=== PATIENT | male | born 1980 | race Caucasian/White ===

== ENCOUNTER 2024-05-31 03:16 | Inpatient (IN) | payer OTHER, SELFPAY ==
[2024-05-30 20:58] VITALS: BMI 20.7
[2024-05-30 21:30] VITALS: BP 151/101
[2024-05-30 22:17] LABS: % Basophils 0.3 % (0-2); % Immature Granulocytes 0.3 % (0-0.5); % Lymphocytes 10.1 % (20.5-51.1); % Monocytes 1.8 % (1.7-9.3); % Neutrophils 87.5 % (42.2-75.2); Absolute Monocytes 0.2 10^3/uL (0.1-0.6); Absolute Neutrophils 8.7 10^3/uL (1.4-6.5); Hematocrit 36.1 % (39.0-52.0); Hemoglobin 12.9 g/dL (13.0-18.0); Mean Corp Hgb Conc. 35.7 g/dL (33.0-37.0); Mean Corpuscular Hgb 29.6 pg (27.0-31.0); Mean Corpuscular Volume 82.8 fL (80.0-94.0); Mean Platelet Volume 9.5 fL (7.4-10.4); Nucleated Red Blood Cells % 0 % (-); Platelet Count 219 10^3/uL (130-400); Red Blood Cell Count 4.36 10^6/uL (4.70-6.10); Red Cell Dist. Width 12.3 % (11.5-14.5)
[2024-05-30] MEDS: NSS 500 IV ×2 (22:18→23:02)
[2024-05-30] MEDS: ZOFRAN 4 MG IV (22:18)
[2024-05-30] MEDS: OMNIPAQUE 50 ML PO (22:18)
[2024-05-30 22:25] VITALS: BP 161/78
[2024-05-30 22:29] LABS: Lactic Acid 2.5 mmol/L (0.7-2.0)
[2024-05-30 22:44] LABS: ALT (SGPT) 26 U/L (0-50); AST (SGOT) 26 U/L (17-59); Albumin 4.8 g/dl (3.5-5.0); Alkaline Phosphatase 81 U/L (38-126); Blood Urea Nitrogen 16 mg/dl (9-20); Carbon Dioxide 23 mmol/L (22-30); Chloride 100 mmol/L (98-107); Estimated Creatinine Clearance 88 ml/min; Glucose 139 mg/dl (70-99); Lipase 50 U/L (23-300); Potassium 4.2 mmol/L (3.5-5.1); Sodium 138 mmol/L (135-145); Total Bilirubin 0.5 mg/dl (0.2-1.3); Total Protein 7.4 g/dl (6.3-8.2); eGFR > 60.00
[2024-05-30] MEDS: COMPAZINE 10 MG IV (22:49)
--- NOTE | 2024-05-30 22:50 | ED.GENMED ---
History of Present Illness
<Jaqueline Oviedo PA-C - Last Filed: 05/31/24 13:00>
General
Chief Complaint: Abdominal Pain
Source: patient
Time Seen by Provider: 05/30/24 21:04
History of Present Illness
History of Present Illness:
43yoM with a history of prior IVDU (last used on 05/10/24, currently on methadone) presenting from the local skilled nursing for evaluation of abdominal pain. He entered the skilled nursing about a week ago. He started to experience pain in his abdomen this morning.
Pain was gradual in onset and is now severe. Pain is primarily located in the epigastrium. He is also having nausea and has had about 4 episodes of vomiting throughout the day. He denies any hematemesis. He has a history of similar symptoms in the
past requiring hospitalization. He was evaluated by the medical staff at the skilled nursing and bowel sounds were reportedly hypoactive. There was concern about a possible bowel obstruction and he was sent to the ED for evaluation. He had a normal bowel
movement earlier today. He denies any fevers or dysuria. No previous abdominal surgeries.
Past History
<Rui Palafox DO - Last Filed: 05/31/24 02:23>
Past History
ED Past Medical History: Other (Questionable peptic ulcer disease, narcotic addiction on methadone)
Social History
Drug: IVDA
Living: skilled nursing
Review of Systems
<Rui Palafox DO - Last Filed: 05/31/24 02:23>
Review of Systems
Constitutional: Reports no symptoms
EENT: Reports no symptoms
Respiratory: Reports no symptoms
Cardiac: Reports no symptoms
ABD/GI: Reports abdominal pain, nausea, vomiting and anorexia; Denies diarrhea, constipated, bloody stools or black stools
: Reports no symptoms
Musculoskeletal: Reports no symptoms
Skin: Reports no symptoms
Neurological: Reports no symptoms
Hematologic/Lymphatic: Reports no symptoms
Phy Exam
<Jaqueline Oviedo PA-C - Last Filed: 05/31/24 13:00>
Physical Exam
Physical Exam:
Appears uncomfortable, clutching abdomen
General Physical Exam
General Presentation: moderate distress
General Skin: warm, dry and pale
General Habitus: frail
General Mental: alert
ENT Exam
ENT Exam: normocephalic
Cardiovascular Exam
Cardiovascular Exam: regular rate/rhythm and no murmur
Pulmonary Exam
Pulmonary Exam: lungs clear, no respiratory distress, no crackles and no wheezing
Gastrointestinal Exam
Gastrointestinal Exam: soft, non distended and other (+Generalized tenderness throughout abdomen, seems to be worse in the LUQ/epigastrium. Abdomen non-distended. No rebound tenderness. )
[place] Coma Scale
Eye Opening: Spontaneous
Verbal Response: Oriented
Motor Response: Obeys Commands
GCS Total Score: 15
Skin Exam
Skin Exam: warm/dry and pallor
Psychiatric Exam
Psychiatric Exam: normal mood/affect
<Rui Palafox DO - Last Filed: 05/31/24 02:23>
[place] Coma Scale
GCS Total Score: 15
Scores
<Rui Palafox DO - Last Filed: 05/31/24 02:23>
Heart Failure Risk
Heart Failure Risk Score: Not Applicable
Heart Score for Chest Pain Patients
STEMI patient?: Not applicable
Withdrawal Assessment of Alcohol
Withdrawal Assessment Completed?: Not applicable
Course
<Jaqueline Oviedo PA-C - Last Filed: 05/31/24 13:00>
Orders/Labs/Results
Orders:
Orders
05/30/24 21:12
0.9% Sodium Chloride 500 ml [Nss] 500 ml IV BOLUS
Iohexol [Omnipaque] See Protocol PO NOW STA
Ondansetron Injectable [Zofran] 4 mg IV NOW STA
05/30/24 21:51
Complete Blood Count/With Diff Urgent
Comprehensive Metabolic Panel Urgent
Lipase Urgent
05/30/24 22:10
Lactic Acid Urgent
05/30/24 22:32
0.9% Sodium Chloride 500 ml [Nss] 500 ml IV BOLUS
05/30/24 22:40
Acetaminophen 1000MG/100Ml [Ofirmev] 1,000 mg in 100 ml IV ONCE
Acetaminophen IV Indication:: ED Narcotic History-ONCE
Diphenhydramine [Benadryl] 25 mg IV NOW STA
Pantoprazole [Protonix IV] 80 mg IV NOW STA
Prochlorperazine [Compazine] 10 mg IV NOW STA
05/30/24 22:45
Pantoprazole 80 mg/100 ml Nss [Protonix] 80 mg in 100 ml IV Q10H
05/31/24 00:00
CT Abd/pel W Iv And Oral Contr Urgent
Reason For Exam: Upper abd pain, vomiting
05/31/24 01:25
Butorphanol Tartrate [Stadol] 2 mg IV NOW STA
05/31/24 02:32
Lidocaine 2% Mpf [Xylocaine Mpf 2%] 85 mg Pharmacy To Prepare [Call Pharmacy To Prepare] 0 ml IV NOW
05/31/24 02:40
Lidocaine 2% Mpf [Xylocaine Mpf 2%] 85 mg 0.9% Sodium Chloride 100 ml [Nss] 100 ml IV NOW
05/31/24 03:05
Admit/Transfer Patient As Directed
Co-Sign Provider:
Level of Care: Inpatient admission
Assign to:: Telemetry
Physician / Group: Vishal
Diagnosis: Abd Pain
Reason for Telemetry: Arrhythmia
Date to Stop Telemetry: 06/03/24
Time to Stop Telemetry: 11:00
Reason for Hospitalization: Abd Pain
Expected length of stay greater than two midnights?: Yes
ELOS- Estimated Length of Stay in days: 2
I certify the patient meets the requirements for IP care: Yes
05/31/24 03:06
PRN Pain Medication Management As Directed
May give lesser potent ordered pain med per pt: Yes
preference::
Protocol:: Medication orders for pain may be administered in a
manner that supports deferring to patient preference
when the pt is:
- Requesting an ordered lesser potent pain medication.
Least to most potent pain medications are defined
as: acetaminophen < NSAID < tramadol < opioids
(morphine, oxycodone, hydromorphone).
- Requesting a lesser dose of the same medication IF
ORDERED.
- Requesting a less intrusive route of administration
if both routes are prescribed by the provider (PO <
IV).
05/31/24 03:07
Code Status As Directed
Resuscitation Status: Full Code
05/31/24 04:47
Acetaminophen [Tylenol] 650 mg PO Q4HPRN PRN
Ketorolac [Toradol] 15 mg IV Q6HPRN PRN
Lactated Ringers [Lr] 1,000 ml IV 125 mls/hr
Metoclopramide [Reglan] 10 mg IV Q6HPRN PRN
Ondansetron Injectable [Zofran] 4 mg IV Q6HPRN PRN
Polyethylene Glycol Powder [Miralax] 17 grams PO DAILY PRN
05/31/24 04:47
Consult Notification Routine
Specialty to Notify: Gastroenterology
GASTROINTESTINAL CONSULT Routine
Consulting Provider: Gavin Barron
Was physician already notified: No
Reason for consult: Abd Pain
Activity As Directed
Activity Level: Ambulate
With Assistance
EKG with chest pain [ECG as needed] As Directed
ECG as needed for:: Chest Pain
I/O [Intake/ Output] As Directed
Frequency: Per unit guidelines
Orthostatic Vital Signs As Directed
Orthostatic VS Frequency: BID
Pneumatic Compression Sleeves As Directed
Type: Knee high
Vital Signs As Directed
Frequency: Per unit guidelines
Oxygen Therapy [O2 Therapy] [RESP] Routine
Titrate/Wean O2 to maintain O2 sat greater than (%): 94
DX Deep Vein Thrombosis Video Routine
05/31/24 05:08
Basic Metabolic Panel IN AM
Complete Blood Count/No Diff IN AM
05/31/24 08:00
Docusate Sodium [Colace] 100 mg PO BID
Methadone HCl [Methadone 100 mg/10 ml] 70 mg PO DAILY
Sertraline HCl [Zoloft] 50 mg PO DAILY
05/31/24 22:00
Sennosides [Senokot] 17.2 mg PO HS
06/03/24 11:00
DC Protocol for Telemetry ONCE
Abnormal Lab Results
05/30/24 05/30/24
21:51 22:10
RBC 4.36 L 10^6/uL
(4.70-6.10)
Hgb 12.9 L g/dL
(13.0-18.0)
Hct 36.1 L %
(39.0-52.0)
Absolute Neuts (auto) 8.7 H 10^3/uL
(1.4-6.5)
Absolute Lymphs (auto) 1.0 L 10^3/uL
(1.2-3.4)
Neutrophils % 87.5 H %
(42.2-75.2)
Lymphocytes % 10.1 L %
(20.5-51.1)
Glucose 139 H mg/dl
(70-99)
Lactic Acid 2.5 H mmol/L
(0.7-2.0)
05/30/24 21:51
05/30/24 21:51
Vital Signs
Initial and Last Documented VS:
Initial Vital Signs
Pulse Ox
100
05/30/24 21:16
Last Documented Vital Signs
Temp Pulse Resp BP Pulse Ox
98.0 F 79 18 120/86 100
05/31/24 11:37 05/31/24 11:37 05/31/24 11:37 05/31/24 11:37 05/31/24 11:37
<Rui Palafox DO - Last Filed: 05/31/24 02:23>
Orders/Labs/Results
Orders:
Orders
05/30/24 21:12
0.9% Sodium Chloride 500 ml [Nss] 500 ml IV BOLUS
Iohexol [Omnipaque] See Protocol PO NOW STA
Ondansetron Injectable [Zofran] 4 mg IV NOW STA
05/30/24 21:51
Complete Blood Count/With Diff Urgent
Comprehensive Metabolic Panel Urgent
Lipase Urgent
05/30/24 22:10
Lactic Acid Urgent
05/30/24 22:32
0.9% Sodium Chloride 500 ml [Nss] 500 ml IV BOLUS
05/30/24 22:40
Acetaminophen 1000MG/100Ml [Ofirmev] 1,000 mg in 100 ml IV ONCE
Acetaminophen IV Indication:: ED Narcotic History-ONCE
Diphenhydramine [Benadryl] 25 mg IV NOW STA
Pantoprazole [Protonix IV] 80 mg IV NOW STA
Prochlorperazine [Compazine] 10 mg IV NOW STA
05/30/24 22:45
Pantoprazole 80 mg/100 ml Nss [Protonix] 80 mg in 100 ml IV Q10H
05/31/24 00:00
CT Abd/pel W Iv And Oral Contr Urgent
Reason For Exam: Upper abd pain, vomiting
05/31/24 01:25
Butorphanol Tartrate [Stadol] 2 mg IV NOW STA
05/31/24 02:32
Lidocaine 2% Mpf [Xylocaine Mpf 2%] 85 mg Pharmacy To Prepare [Call Pharmacy To Prepare] 0 ml IV NOW
05/31/24 02:40
Lidocaine 2% Mpf [Xylocaine Mpf 2%] 85 mg 0.9% Sodium Chloride 100 ml [Nss] 100 ml IV NOW
05/31/24 03:05
Admit/Transfer Patient As Directed
Co-Sign Provider:
Level of Care: Inpatient admission
Assign to:: Telemetry
Physician / Group: Vishal
Diagnosis: Abd Pain
Reason for Telemetry: Arrhythmia
Date to Stop Telemetry: 06/03/24
Time to Stop Telemetry: 11:00
Reason for Hospitalization: Abd Pain
Expected length of stay greater than two midnights?: Yes
ELOS- Estimated Length of Stay in days: 2
I certify the patient meets the requirements for IP care: Yes
05/31/24 03:06
PRN Pain Medication Management As Directed
May give lesser potent ordered pain med per pt: Yes
preference::
Protocol:: Medication orders for pain may be administered in a
manner that supports deferring to patient preference
when the pt is:
- Requesting an ordered lesser potent pain medication.
Least to most potent pain medications are defined
as: acetaminophen < NSAID < tramadol < opioids
(morphine, oxycodone, hydromorphone).
- Requesting a lesser dose of the same medication IF
ORDERED.
- Requesting a less intrusive route of administration
if both routes are prescribed by the provider (PO <
IV).
05/31/24 03:07
Code Status As Directed
Resuscitation Status: Full Code
05/31/24 04:47
Acetaminophen [Tylenol] 650 mg PO Q4HPRN PRN
Ketorolac [Toradol] 15 mg IV Q6HPRN PRN
Lactated Ringers [Lr] 1,000 ml IV 125 mls/hr
Metoclopramide [Reglan] 10 mg IV Q6HPRN PRN
Ondansetron Injectable [Zofran] 4 mg IV Q6HPRN PRN
Polyethylene Glycol Powder [Miralax] 17 grams PO DAILY PRN
05/31/24 04:47
Consult Notification Routine
Specialty to Notify: Gastroenterology
GASTROINTESTINAL CONSULT Routine
Consulting Provider: Gavin Barron
Was physician already notified: No
Reason for consult: Abd Pain
Activity As Directed
Activity Level: Ambulate
With Assistance
EKG with chest pain [ECG as needed] As Directed
ECG as needed for:: Chest Pain
I/O [Intake/ Output] As Directed
Frequency: Per unit guidelines
Orthostatic Vital Signs As Directed
Orthostatic VS Frequency: BID
Pneumatic Compression Sleeves As Directed
Type: Knee high
Vital Signs As Directed
Frequency: Per unit guidelines
Oxygen Therapy [O2 Therapy] [RESP] Routine
Titrate/Wean O2 to maintain O2 sat greater than (%): 94
DX Deep Vein Thrombosis Video Routine
05/31/24 05:08
Basic Metabolic Panel IN AM
Complete Blood Count/No Diff IN AM
05/31/24 08:00
Docusate Sodium [Colace] 100 mg PO BID
Methadone HCl [Methadone 100 mg/10 ml] 70 mg PO DAILY
Sertraline HCl [Zoloft] 50 mg PO DAILY
05/31/24 22:00
Sennosides [Senokot] 17.2 mg PO HS
06/03/24 11:00
DC Protocol for Telemetry ONCE
Abnormal Lab Results
05/30/24 05/30/24
21:51 22:10
RBC 4.36 L 10^6/uL
(4.70-6.10)
Hgb 12.9 L g/dL
(13.0-18.0)
Hct 36.1 L %
(39.0-52.0)
Absolute Neuts (auto) 8.7 H 10^3/uL
(1.4-6.5)
Absolute Lymphs (auto) 1.0 L 10^3/uL
(1.2-3.4)
Neutrophils % 87.5 H %
(42.2-75.2)
Lymphocytes % 10.1 L %
(20.5-51.1)
Glucose 139 H mg/dl
(70-99)
Lactic Acid 2.5 H mmol/L
(0.7-2.0)
05/30/24 21:51
05/30/24 21:51
Vital Signs
Initial and Last Documented VS:
Initial Vital Signs
Pulse Ox
100
05/30/24 21:16
Last Documented Vital Signs
Temp Pulse Resp BP Pulse Ox
98.0 F 79 18 120/86 100
05/31/24 11:37 05/31/24 11:37 05/31/24 11:37 05/31/24 11:37 05/31/24 11:37
<Jaqueline Oviedo PA-C - Last Filed: 05/31/24 13:00>
MDM/Problems Addressed
Differential Diagnosis Includes:
43yoM here with abdominal pain and n/v that began earlier today. Hx of IVDU currently on methadone. Arrives from local skilled nursing. Medical staff at skilled nursing reportedly concerned for bowel obstruction although patient had a normal BM earlier today. VSS. He
appears uncomfortable on exam. Abdomen is non-distended with generalized tenderness. Differential diagnosis includes but is not limited to: pancreatitis, PUD, gastroenteritis, colitis, SBO, early appendicitis
Initial ED plan: Check abdominal labs, lactate, and CT abdomen. IV Zofran and fluid bolus for symptoms.
<Rui Palafox DO - Last Filed: 05/31/24 02:23>
*Radiology
Radiology exam reviewed: radiology read reviewed (Large amount of stool but nothing acute on the CT)
*Pulse Oximetry
Patient hypoxic: no
*EKG
Interpreted by ED Provider?: NA
*Marketing Program Manager Interpretation
Rate: Marketing Program Manager- N/A
*Critical Care Note
Total Time (30-74mins, 75-104mins- exclusive of procedures): Not Applicable
<Jaqueline Oviedo PA-C - Last Filed: 05/31/24 13:00>
Update Note
Update Note:
Lactate 2.5. White count is normal. Remainder of labs unremarkable including normal lipase, LFTs, renal function. Suspect lactic acidosis is 2/2 vomiting and dehydration. Additional fluid bolus ordered. No symptomatic improvement after Zofran and IV
Compazine, Benadryl, Ofirmev, and Protonix ordered. Patient signed out to Dr. Palafox pending CT results. Final disposition pending.
I checked with pharmacy and state all could precipitate withdrawal. Patient's received IV acetaminophen. Will try IV lidocaine. I am trying to avoid narcotics or ketamine.
<Rui Palafox DO - Last Filed: 05/31/24 02:23>
Update Note
Update Note:
Lactate 2.5. White count is normal. Remainder of labs unremarkable including normal lipase, LFTs, renal function. Suspect lactic acidosis is 2/2 vomiting and dehydration. Additional fluid bolus ordered. No symptomatic improvement after Zofran and IV
Compazine, Benadryl, Ofirmev, and Protonix ordered.
I checked with pharmacy and state all could precipitate withdrawal. Patient's received IV acetaminophen. Will try IV lidocaine. I am trying to avoid narcotics or ketamine.
ED Attending Note
<Jaqueline Oviedo PA-C - Last Filed: 05/31/24 13:00>
-
Portions of this chart may have been created with voice recognition software.� Occasional wrong word or��sound alike� substitutions may have occurred due to the inherent limitations of voice recognition software.
<Rui Palafox DO - Last Filed: 05/31/24 02:23>
ED Attending Note
Patient seen and examined by attending physician: Yes
I performed the substantive portion of visit, reviewed & personally made and approve the management plan that is documented in note by myself or PRIYANK.: Yes
ED Attending Note:
Patient is a 43-year-old male who presents with abdominal pain and nausea and vomiting since this morning. Patient states he has had this previously and typically his white count is elevated with intractable vomiting and pain he needs admitted to
the hospital. Patient has been in the skilled nursing since 23 May. Patient has not had any alcohol. Patient denies any fever or chills. Patient denies any melena or hematochezia. Patient denies any diarrhea or constipation. Patient denies any
chest pain or shortness of breath. Patient is on methadone has a history of IVDA. On physical exam the patient appears older than stated age and appears to be in significant distress. Patient somewhat pale. Patient has poor dentition. Patient's
neck is supple. Heart is regular lungs are clear. Patient's abdominal exam is diffusely tender without apparent guarding or rebound. Patient's extremities without edema, cyanosis. Patient has poor vascular access. Patient's lactate is
elevated.. Do not believe this is due to sepsis and doubt ischemic bowel disease although certainly that has to be in the differential. Believe it is due more to dehydration and volume contraction. Get the CT scanned. I anticipate the patient
will need to be admitted. Patient's vomitus is brown but there small amounts of blood. When asked about his previous history the patient did mention possible ulcers. Patiently placed on Protonix. Will try to manage the patient's pain without
narcotics but may need rescue medication.
01:30 patient's CAT scan is rather unremarkable. Patient does have a large amount of stool. Does not appear to be extensive atherosclerosis or anything to explain ischemic bowel disease. Given the patient's history and presentation and continued
symptoms the patient will be admitted.
Discharge Plan
Departure
Patient Disposition: Admit
Date of Disposition: 05/31/24
Time of Disposition: 01:33
Admit to: Med/Surg
Admit to doctor: Hospitalist
Presentation/result/management discussed w/ accepting MD/DO: Hospitalist
Patient with high blood pressure during this ER visit?: Yes
Condition: Fair
Covid-19: Not Applicable
Discharge Problem:
Abdominal pain, Vomiting
Interventions
Interventions:
*Risk Screen - Suicide Last Done: 05/30/24 21:30
*General Assessment Last Done: 05/30/24 21:30
*Neglect/Abuse Screening Last Done: 05/30/24 21:30
*ED COVID-19 Vaccine History Last Done: 05/30/24 21:35
*Nursing Disposition Last Done: 05/31/24 04:55
DB-Bhimfg-Pagvhlgtwj Assessment Last Done: 05/30/24 21:36
Discharge Date and Time
Discharge Date/Time: 05/31/24 04:55
[2024-05-30] MEDS: BENADRYL 25 MG IV (22:51)
[2024-05-30] MEDS: PROTONIX IV 80 MG IV (22:57)
[2024-05-30 23:00] VITALS: BP 147/76
[2024-05-30] MEDS: OFIRMEV 100 IV (23:03)
[2024-05-30] MEDS: PROTONIX 100 IV (23:35)
[2024-05-31] VITALS (12 sets, daily range): BP systolic 119–154; BP diastolic 74–111; PULSE 67–105; BMI 19.2
[2024-05-31] MEDS: XYLOCAINE MPF 2% 104.25 MG IV (02:54)
--- NOTE | 2024-05-31 03:11 | HPS.HSE ---
Family Physician
-
Family Physician: [facility]
Chief Complaint
-
Abd Pain
History of Present Illness
Patient is a 43y M with PMH significant for opioid use disorder who presents to ED complaining of abdominal pain. Patient states that he woke this AM with abdominal pain that has gradually progressed throughout the day. He was seen by the nurse
at skilled nursing this AM and given Zofran without improvement in his symptoms. He then developed N/V x several episodes of non-bloody emesis. He was brought to the ED for further evaluation and treatment. Patient states that the pain is along the center
of his abdomen - from his umbilicus to his epigastric region. He had a single episode of emesis here in the ED with some blood tinge.
Patient reports prior history of similar symptoms and notes that he has been seen in hospitals in the past for similar symptoms. He states that he was diagnosed with 'ulcers'.
He notes that it has been some time since he had such an episode.
Patient has history of opioid use disorder. He uses fentanyl IV or intranasally.
He last used on 05/09 - prior to being incarcerated on 05/10.
He has been on methadone since that time. His dose was increased about 2 weeks ago.
Medical History
Past Medical History
Past Medical History: Reports Other
Additional Past Medical History:
Opioid Use Disorder
Anxiety / Depression
GERD / PUD
Past Surgical History: Reports Other
Additional Past Surgical History:
Bilateral Inguinal Hernia Repairs
Social History
Tobacco: Smoker (Current every day smoker. 07/28 ppd.)
Alcohol: None
Drug: Other (Fentanyl use IV and intranasal. Last used 05/09/24.)
Family History
Family History: Not pertinent
Allergies / Home Medications
Allergies reflects when Allergies were last updated in [facility].
Home Medications with original date entered in [facility]
Allergy/Medication List:
Allergies
Allergy/AdvReac Type Severity Reaction Status Date / Time
No Known Allergies Allergy Unverified 05/30/24 21:28
Home Medications
hydroxyzine pamoate 50 mg capsule 50 mg PO BID 05/30/24
methadone 10 mg/mL oral concentrate 70 mg PO DAILY 05/30/24
ondansetron HCl 4 mg tablet 4 mg PO BID 05/30/24
sertraline 50 mg tablet 50 mg PO DAILY 05/30/24
Review of Systems
-
History Source: Patient
A 12 point ROS was completed and negative except as noted: Yes
Constitutional: Denies Fever or Chills
EENT: Denies Sore Throat
Respiratory: Denies Cough or Trouble Breathing
Cardiac: Denies Chest Pain or Palpitations
Abdomen/GI: Reports Abdominal Pain, Nausea and Vomiting; Denies Diarrhea, Constipated, Bloody Stools, Black Stools or Anorexia
: Denies Dysuria, Frequency or Flank Pain
Neurological: Denies Dizzy or Headache
Psych: Reports Anxiety; Denies Depression
Physical Exam
Vital Signs
Vital Signs
Temp Pulse Resp BP Pulse Ox
98.4 F 84 20 154/96 98
05/30/24 21:30 05/31/24 03:00 05/31/24 02:45 05/31/24 03:00 05/31/24 03:00
Physical Exam
General: Other (43y M in mild distress due to abdominal pain and anxiety.)
HEENT: Moist mucous membranes, PERRLA and Other (Poor dentition.)
Respiratory: Clear; No Wheezes, Rales or Rhonchi
Cardiac: S1/S2 and Regular Rhythm; No Murmur
GI: Soft, Non Distended, Normal Bowel Sounds and Other (Tenderness in mid-abdomen. Voluntary guarding.)
Musculoskeletal: No Clubbing, No Cyanosis and No Edema
Neuro: AO x 3
Laboratory Results
-
05/30/24 21:51
05/30/24 21:51
Laboratory Results
Lactic Acid 2.5 mmol/L (0.7-2.0) H 05/30/24 22:10
Total Bilirubin 0.5 mg/dl (0.2-1.3) 05/30/24 21:51
AST 26 U/L (17-59) 05/30/24 21:51
ALT 26 U/L (0-50) 05/30/24 21:51
Alkaline Phosphatase 81 U/L (38-126) 05/30/24 21:51
Lipase 50 U/L (23-300) 05/30/24 21:51
Impression/Plan
-
A/P: Patient is a 43y M with PMH significant for substance abuse who presents to ED from skilled nursing complaining of abdominal pain.
Abdominal Pain
- Admit for further evaluation and treatment.
- Unclear etiology of pain.
- CT done in the ED is unremarkable.
- ? gastritis, PUD, cyclic vomiting syndrome (based on history of prior episodes), etc.
- Continue efforts at supportive care - attempting to avoid additional opioid medications.
- IV PPI gtt started in the ED.
- Pain control with Tylenol, Reglan / Toradol, etc.
- GI evaluation for additional recommendations.
- Follow for any new / worsening symptoms.
Opioid Use Disorder
- Last use of illicit substances was 05/09 prior to incarceration.
- Currently on methadone and will continue current dose without changes.
- Attempt to avoid opioid medications for acute pain - especially with no clear etiology discovered.
DVT Prophylaxis: SCDs
Code Status: Full
--- NOTE | 2024-05-31 04:47 | PTCARENOTE ---
Pt received from ED to rm [id number]. Pt oriented to room and call alonso.
[2024-05-31 05:23] LABS: Hematocrit 36.2 % (39.0-52.0); Hemoglobin 12.7 g/dL (13.0-18.0); Mean Corp Hgb Conc. 35.1 g/dL (33.0-37.0); Mean Corpuscular Hgb 30.6 pg (27.0-31.0); Mean Corpuscular Volume 87.2 fL (80.0-94.0); Mean Platelet Volume 9.9 fL (7.4-10.4); Platelet Count 217 10^3/uL (130-400); Red Blood Cell Count 4.15 10^6/uL (4.70-6.10); Red Cell Dist. Width 12.3 % (11.5-14.5); White Blood Cell Count 11.8 10^3/uL (4.8-10.8)
[2024-05-31] MEDS: LR 1000 IV ×3 (05:23→21:29)
[2024-05-31 05:38] LABS: Lactic Acid 2.3 mmol/L (0.7-2.0)
[2024-05-31 05:41] LABS: Blood Urea Nitrogen 14 mg/dl (9-20); Calcium 9.5 mg/dl (8.4-10.2); Carbon Dioxide 23 mmol/L (22-30); Chloride 102 mmol/L (98-107); Estimated Creatinine Clearance 84 ml/min; Glucose 116 mg/dl (70-99); Potassium 4.4 mmol/L (3.5-5.1); Sodium 141 mmol/L (135-145); eGFR > 60.00
--- NOTE | 2024-05-31 07:57 | CON.GI ---
Consultation
-
Date/Time Consultation Requested: 05/31/24 04.47 am
Date/Time Consultation Performed: 05/31/24 08.30 am
Requesting Provider: Mohan Rodgers DO
Performing Provider: Regina Dillard MD
Reason for Consultation: Abdominal Pain
Medical History
Chief Complaint / HPI
Chief Complaint: Abdominal Pain
History of Present Illness:
The patient is a 43 year old male who has a PMH of opioid use disorder , presented to ER complaining from abdominal pain. He reported that his pain started on Thursday morning and it gradually got worsened. Even he was given Zofran in the [facility] he
had a few episodes of vomiting but he denies hematemesis. He has a history of similar symptoms in the past requiring hospitalization and was diagnosed with ulcers. The patient does not remember the details about his ulcer diagnosis and reports it
was a few years ago.
Past Medical History
Past Medical History: GERD (PUD ), Psychiatric (Anxiety / Depression) and Other (Opioid Use Disorder)
Past Surgical History: Other (Bilateral Inguinal Hernia Repairs)
Social History
Tobacco: Smoker (Current every day smoker. 07/28 ppd)
Alcohol: None
Drug: Other (Fentanyl use IV and intranasal. Last used 05/09/24)
Living: Group Home
Family History
Family History: Reviewed & Not Pertinent
Allergies / Home Medications
Allergy/AdvReac Type Severity Reaction Status Date / Time
No Known Allergies Allergy Unverified 05/30/24 21:28
�Medication �Instructions �Recorded
hydroxyzine pamoate 50 mg capsule 50 mg PO BID 05/30/24
methadone 10 mg/mL oral concentrate 70 mg PO DAILY 05/30/24
ondansetron HCl 4 mg tablet 4 mg PO BID 05/30/24
sertraline 50 mg tablet 50 mg PO DAILY 05/30/24
Review of Systems
-
History Source: Patient
Constitutional: Reports No Symptoms
EENT: Reports No Symptoms
Respiratory: Reports No Symptoms
Cardiac: Reports No Symptoms
Abdomen/GI: Reports Nausea, Vomiting, Pain and Other (Denies Diarrhea, Constipated, Bloody Stools, Black Stools, Denies hematemesis )
: Reports No Symptoms
Musculoskeletal: Reports No Symptoms
Skin: Reports No Symptoms
Neurological: Reports No Symptoms
Vital Signs
Temp Pulse Resp BP Pulse Ox
98.4 F 83 16 139/87 100
05/31/24 07:50 05/31/24 07:50 05/31/24 07:50 05/31/24 07:50 05/31/24 07:50
Physical Exam
Exam
General: Well Developed
HEENT: Normocephalic and Anicteric
Respiratory: Clear
Cardiac: S1/S2 and Regular Rhythm
GI: Tender and Other (Generalized tenderness on abdominal area/ No rebound/ Pain to palpation )
Musculoskeletal: No Clubbing, No Cyanosis and No Edema
Neuro: Awake, Alert, Oriented and AO x 3
Results
WBC 11.8 10^3/uL (4.8-10.8) H 05/31/24 05:08
Hgb 12.7 g/dL (13.0-18.0) L 05/31/24 05:08
Hct 36.2 % (39.0-52.0) L 05/31/24 05:08
MCV 87.2 fL (80.0-94.0) 05/31/24 05:08
Plt Count 217 10^3/uL (130-400) 05/31/24 05:08
Absolute Neuts (auto) 8.7 10^3/uL (1.4-6.5) H 05/30/24 21:51
Sodium 141 mmol/L (135-145) 05/31/24 05:08
Potassium 4.4 mmol/L (3.5-5.1) 05/31/24 05:08
Chloride 102 mmol/L (98-107) 05/31/24 05:08
Carbon Dioxide 23 mmol/L (22-30) 05/31/24 05:08
BUN 14 mg/dl (9-20) 05/31/24 05:08
Creatinine 0.9 mg/dL (0.7-1.3) 05/31/24 05:08
Calcium 9.5 mg/dl (8.4-10.2) 05/31/24 05:08
Total Bilirubin 0.5 mg/dl (0.2-1.3) 05/30/24 21:51
AST 26 U/L (17-59) 05/30/24 21:51
ALT 26 U/L (0-50) 05/30/24 21:51
Alkaline Phosphatase 81 U/L (38-126) 05/30/24 21:51
Lipase 50 U/L (23-300) 05/30/24 21:51
Diagnostic Image Results:
05/31/24 Abd/Pelvis CT
IMPRESSION:
1. Right-sided nephrolithiasis without hydronephrosis.
2. Curvilinear filling defect within the urinary bladder, which is mobile. This may represent urinary sediment, blood clot, or other filling defect within the urinary bladder. Please correlate with symptoms, and if indicated with cystoscopy.
3. Suggestion of constipation.
Prior GI Procedures:
The patient reports having endoscopy in the past but he does not remember the time and hospital. Reports he remembers he has diagnosis of ulcers.
EGD:
Colonoscopy:
Assessment / Plan
-
Impression: The patient is a 43 year old male who presented to ER complaining from generalized pain. Reports having a few episodes of vomiting along feeling nauseous with his abdominal pain. Denies black/tarry stools and hematemesis. Reports his
last BM was yesterday and it was normal brown colored stool. Even he denies hematemesis, it is recorded on his ER note that 'Patient's vomitus was brown but there small amounts of blood.' Patient denies any melena or hematochezia. He reports
having a similar hospitalization a few years ago and was diagnosis of ulcer at that time. He reports he had endoscopy, bu he does not remember the hospital, time and place.
Assessment/Plan:
#Abdominal pain and vomiting episodes
-One episode of vomiting small amount of blood at admission to ER
-Hx of endoscopy for similar symptoms with diagnosis of ulcer at that time
-Hgb likely demar at 12.7/ Follow up hgb
-Ondansetron PRN / recommend to check QTc ( patient is on methadone)
-Continue PPI gtt
-Endoscopy is planning for tomorrow
-Clear liquids for today and NPO after midnight
-
-
Thank you for consultation and allowing me to participate in the patient's care. Please call the master sonar technician GI physician during the after hours with any questions or concerns.
[2024-05-31] MEDS: METHADONE 100 MG/10 ML 70 MG PO (08:18)
[2024-05-31] MEDS: COLACE 100 MG PO ×2 (08:18→19:47)
[2024-05-31] MEDS: ZOLOFT 50 MG PO (08:18)
[2024-05-31] MEDS: PROTONIX 100 IV ×2 (08:35→17:40)
--- NOTE | 2024-05-31 11:05 | W.PN.HOSP.TC ---
Today's Communication/Plan
-
IV PPI.
Clear liquid diet
Follow-up upper endoscopy on 06/01
Continue methadone
Check ECG for QTc interval while on methadone and Zofran.
Assessment / Plan
Assessment / Plan
Impression:
Patient is a 43y M with PMH significant for substance abuse who [facility] complaining of abdominal pain.
Leukocytosis.
Mild elevation of lactic acid
Opiate use disorder
Asymptomatic nephrolithiasis on CT scan
Plan:
Presentation with persistent epigastric abdominal pain and nausea and vomiting
CT scan in ED with double contrast with no acute abnormalities.
Elevated white count with mild lactic acid elevation, although hemodynamically stable and nontoxic-appearing on exam.
? Prior history of PUD, differential gastritis/PUD/cyclic vomiting.
No symptoms of opiate withdrawal as patient is on methadone with last illicit substances used on 05/09 prior to incarceration
Stable hemoglobin
Clear liquid diet
PPI.
GI input appreciated with plan for upper endoscopy on 06/01.
Treat constipation
Opioid Use Disorder
- Last use of illicit substances was 05/09 prior to incarceration.
- Currently on methadone and will continue current dose without changes.
- Attempt to avoid opioid medications for acute pain - especially with no clear etiology discovered.
Check ECG for QTc while on methadone and Zofran.
Asymptomatic nephrolithiasis. CT scan with right-sided nephrolithiasis without hydronephrosis.
Anticipated Discharge: 24 - 48 hours
Subjective/Interval History
-
Date of Service: May 31, 2024
Objective Data
-
Labs:
Laboratory Results
05/31/24
05:08
WBC 11.8 H
Hgb 12.7 L
Hct 36.2 L
Plt Count 217
Sodium 141
Potassium 4.4
Chloride 102
Carbon Dioxide 23
BUN 14
Creatinine 0.9
Glucose 116 H
Calcium 9.5
Vital Signs:
Vital Signs
Temp Pulse Resp BP Pulse Ox
98.4 F 83 16 139/87 100
05/31/24 07:50 05/31/24 07:50 05/31/24 07:50 05/31/24 07:50 05/31/24 07:50
Physical Exam
-
General: Well Developed and No Apparent Distress
HEENT: Normocephalic, Atraumatic and Moist Mucous Membranes
Respiratory: Clear to Auscultation
Cardiac: Regular Rhythm and S1/S2; Negative Murmur, Rub or Gallop
GI: Soft, Nontender, Nondistended and Normal Bowel Sounds; Negative Organomegaly
Rectal: Deferred by Provider
Musculoskeletal: No Clubbing, No Cyanosis and No Edema
Skin: Negative Rash
Neuro: Awake, Alert, Oriented and Nonfocal/Grossly Intact
[2024-05-31] MEDS: TORADOL 15 MG IV ×2 (14:28→21:30)
--- NOTE | 2024-05-31 16:46 | CM ---
corporate training manager reviewed patient's chart and patient was admitted from [facility], 2 guards are at bedside.
Plan; Patient to return to [facility] when stable.
[facility]
[phone]
[2024-05-31] MEDS: SENOKOT 17.2 MG PO (21:30)
[2024-06-01 03:24] VITALS: BP 128/87
[2024-06-01] MEDS: PROTONIX 100 IV (04:07)
[2024-06-01] MEDS: LR 1000 IV (05:32)
[2024-06-01] MEDS: TORADOL 15 MG IV ×2 (06:12→12:56)
[2024-06-01 07:00] VITALS: BP 95/76
[2024-06-01] MEDS: ZOLOFT 50 MG PO (08:05)
[2024-06-01] MEDS: METHADONE 100 MG/10 ML 70 MG PO (08:05)
[2024-06-01] MEDS: COLACE 100 MG PO (08:05)
--- NOTE | 2024-06-01 10:50 | CM ---
Chart reviewed and patient to return to [facility] when stable.
Plan; [facility].
[facility]
[phone]
[2024-06-01 11:00] VITALS: BP 131/84; BP 138/111; BP 151/85; PULSE 71; PULSE 81; PULSE 82
[2024-06-01 15:00] VITALS: BP 136/90
--- NOTE | 2024-06-01 15:39 | W.DS.TRANS ---
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
-
Discharge Instructions:
Discharge Diagnosis/Procedures Acute gastritis
Diet Low Residue
Instructions:
Stand-Alone Forms:
Changes to Home Medications: Yes
Discharge Medications:
DC Medications w/original date entered in [employer]
hydroxyzine pamoate 50 mg capsule 50 mg PO BID Mental Health/Anxiety 05/30/24
methadone 10 mg/mL oral concentrate 70 mg PO DAILY YARA 05/30/24
sertraline 50 mg tablet 50 mg PO DAILY Depression 05/30/24
docusate sodium 100 mg capsule 100 mg PO BID #60 caps 06/01/24
pantoprazole 40 mg tablet,delayed release (Protonix) 40 mg PO BID #90 tabs 06/01/24
sennosides 8.6 mg tablet (Senna Laxative) 17.2 mg (2 x 8.6 mg) PO HS #30 tabs 06/01/24
Home Medication Changes
PPI added
Pending Results: No
[2024-06-01] MEDS: AFLURIA (36 mos+) 2024-2025 FORMULA 0.5 ML IM (16:14)
== END 2024-06-01 19:36 | DRG 392 ==
LOC: 4 WEST ACU 03:16
PROVIDERS: Nurse Practitioner Family; Physician Assistant; Student in an Organized Health Care Education/Training Program; ADMITTING PHYSICIAN Hospitalist; ATTENDING PHYSICIAN Internal Medicine; EMERGENCY PHYSICIAN Emergency Medicine; OTHER PHYSICIAN Student in an Organized Health Care Education/Training Program
PROC: 0DB58ZX Excision of Esophagus, Via Natural or Artificial Opening Endoscopic, Diagnostic (ICD-10-PCS; 2024-06-01)
DX: K29.00 Acute gastritis without bleeding (principal); F11.20 Opioid dependence, uncomplicated; F17.210 Nicotine dependence, cigarettes, uncomplicated; K44.9 Diaphragmatic hernia without obstruction or gangrene; K31.89 Other diseases of stomach and duodenum
CPT/HCPCS: 88305; 74177; 80048; 80053; 83605; 83690; 85025; 85027; 87070; 88342; 90686; 93005; 96361; 96374; 96375; 99285; G0008; Q9967